=== PATIENT | male | born 1980 | race Two or more races ===

== ENCOUNTER 2023-05-15 09:39 | Emergency (ER) | payer OTHER ==
[~2023-05-15] VITALS: Ht 167.6 cm; Wt 102.1 kg
== END 2023-05-15 14:33 | disposition home or self-care (01) ==
LOC: ER 09:39
DX: S40.012A Contusion of left shoulder, initial encounter (principal); W19.XXXA Unspecified fall, initial encounter; Y93.9 Activity, unspecified; Y92.9 Unspecified place or not applicable; Y99.9 Unspecified external cause status